=== PATIENT | female | born 1945 | race African-American/Black ===

== ENCOUNTER 2023-12-03 14:49 | Emergency (ER) | payer OTHER ==
[~2023-12-03] VITALS: Ht 170.2 cm; Wt 68.0 kg
[~2023-12-03 14:49] MED LIST: APIX2.5T PO; ATOR20TA65 PO; DOCU-150 PO; KEPPSOL PO; LACT1CAP78 PO; MELA1LIQ; MEMA10TA2 PO
[2023-12-03 14:56] VITALS: O2SAT 97
[2023-12-03] MEDS: DIATR MEGLU/DIATRIZOATE SOLN 30ML ONE (17:13)
[2023-12-03 23:43] VITALS: BP 124/77; PULSE 106; RESP 16; TEMP 36.66960; O2SAT 96
== END 2023-12-03 23:45 | disposition home or self-care (01) ==
LOC: ER 14:49
DX: T85.528A Displacement of other gastrointestinal prosthetic devices, implants and grafts, initial encounter (principal); E78.00 Pure hypercholesterolemia, unspecified; F03.90 Unspecified dementia, unspecified severity, without behavioral disturbance, psychotic disturbance, mood disturbance, and anxiety; Z98.890 Other specified postprocedural states; Z88.8 Allergy status to other drugs, medicaments and biological substances; X58.XXXA Exposure to other specified factors, initial encounter; Y93.89 Activity, other specified; Y92.89 Other specified places as the place of occurrence of the external cause; Y99.8 Other external cause status
CPT/HCPCS: 99285; 74018; Q9963; 99284